=== PATIENT | female | born 1940 | race Caucasian/White ===

== ENCOUNTER 2020-07-21 11:16 | Outpatient (CLI) | payer OTHER ==
[~2020-07-21 11:16] MED LIST: IMODIUM A-D2 MG PO; NEURONTIN300 MG PO; ULTRACET
== END 2020-07-21 14:40 | disposition home or self-care (01) ==
LOC: OFIC 805 11:16
PROVIDERS: ATTEND Otolaryngology
DX: H60.541 Acute eczematoid otitis externa, right ear (principal); R42 Dizziness and giddiness; H91.93 Unspecified hearing loss, bilateral